=== PATIENT | female | born 1985 | race Caucasian/White ===

== ENCOUNTER 2016-11-24 19:53 | Emergency (ER) | payer OTHER ==
[~2016-11-24] VITALS: Ht 167.6 cm; Wt 77.3 kg
[~2016-11-24 19:53] MED LIST: ASCO500T9 PO; Docusate Sodium PO; FERR-83 PO; Hydrocodone/Acetaminophen PO; Ibuprofen PO; PREN1TAB78 PO
[2016-11-24 19:55] VITALS: BP 122/86; PULSE 90; RESP 20; O2SAT 100
--- NOTE | 2016-11-24 20:11 | ED.REPORT ---
HPI-General Illness Date of Service Nov 24, 2016 ED Provider: Shady Garcia MD A four month post- 31 year old female with a history of ovarian cysts is referred to the ED from Urgent Care due to lower abdominal cramping onset this morning. The pain "radiates like a contraction" but mostly stays in the lower abdomen. This is accompanied by lightheadedness and nausea, though the pt denies vomiting. She was seen by her law secretary earlier today, who performed a pelvic exam. This exam was normal. The pt experienced menstrual bleeding throughout 10/2016, but has not bled today despite having similar pain to her menstrual cramps. The last time the pt experienced this pain, she was hospitalized and diagnosed with an ovarian cyst. The pt is taking hormonal control pills. Nursing Notes Stated Complaint: CRAMPS/ABDOMINAL PAIN Chief Complaint: Female Abdominal Pain Nursing Notes Reviewed: Yes Allergies: Coded Allergies: No Known Allergies (Unverified Allergy, Unknown, 11/24/16) Scheduled ([Hydrocodone/Acetaminophen]) 1 TAB TABLET 1 TAB PO Q4-6H ([Docusate Sodium]) 100 MG CAPSULE 100 MG PO DAILY Ascorbic Acid (Ascorbic Acid) 500 Mg Tablet 500 MG PO DAILY Ferrous Sulfate (Ferrous Sulfate) 325 Mg Tablet 325 MG PO DAILY Vits W-Ca,Fe,FA(<1Mg) ( Formula) 1 Each Tablet 1 EACH PO DAILY Scheduled PRN ([Ibuprofen]) 800 MG TABLET 800 MG PO Q8 PRN PRN For Pain Hydrocodone-Acetaminophen 5-325 mg (Hydrocodone-Acetaminophen 5-325 mg) 1 Each Tablet 1 TABLET PO Q4H PRN PRN For Pain General Time Seen by MD: 20:11 Chief Complaint Abdominal pain Hx Obtained From: Patient Arrived By: Walk-in Sudden in Onset?: No Onset Occurred: 9 - 12 hours ago Recent Healthcare: No recent hospitalization, Recent doctor visit Similar Sx Previous: Yes Past Medical History Past Medical History Ovarian cysts Past Surgical History Cyst removal form L ovary Family History Reviewed, not relevant Smoking History Never Smoker Social History Alcohol Use: Denies alcohol use Drug Use: Denies drug use Other Social History: , Lives with children Ambulatory Status Independent Review of Systems Full Review of Systems Respiratory: Denies: Non-productive cough, Shortness of breath Cardiovascular: Denies: Chest pain GI: Reports: Abdominal pain, Nausea, Denies: Vomiting Musculoskeletal: Denies: Back pain, Neck pain Skin: Denies Rash Neurologic: Reports: Lightheaded Complete sys rev & neg: except as marked. Physical Exam Constitutional: Well-developed, well-nourished. Not diaphoretic. Head: Normocephalic and atraumatic. Mouth/Throat: Oropharynx is clear and moist. No oropharyngeal exudate. Eyes: EOM are normal. Pupils are equal, round, and reactive to light. Neck: Supple, no tracheal deviation. Cardiovascular: Normal rate, regular rhythm. Equal and intact distal pulses throughout. Pulmonary/Chest: Effort normal and breath sounds normal. No respiratory distress. Abdominal: Soft. No distension. There is no focal tenderness to palpation, rebound, or guarding. Bowel sounds present. Musculoskeletal: Range of motion grossly intact, moving all extremities. No edema or tenderness appreciated. Neurological: AOx3. Grossly nonfocal exam. Strength and sensation intact and equal to bilateral upper and lower extremities. Skin: Warm and dry, no rashes or pallor appreciated. Psychiatric: Appropriate mood and affect. Behavior appears normal. Vital Signs Vital Signs Date Time Temp Pulse Resp B/P Pulse Ox O2 Delivery O2 Flow Rate FiO2 11/24/16 19:55 36.6 90 20 122/86 100 Room Air Initial VS: Reviewed Interpretation & Diagnostics Interpretation & Diagnostics: US: No acute abnormalities. Lab Results Interpretation Result Diagram: 11/24/16203411/24/162034 Test 11/24/16 20:20 11/24/16 20:35 Urine Color Yellow (YELLOW) Urine Appearance Clear (CLEAR,HAZY) Urine pH 7.5 (5.0-8.0) Urine Specific [place] 1.010 (1.003-1.035) Urine Protein Negativemg/dL (NEG,TRACE) Urine Glucose (UA) Negativemg/dL (NEGATIVE) Urine Ketones Negativemg/dL (NEGATIVE) Urine Occult Blood Negative (NEGATIVE) Urine Nitrite Negative (NEGATIVE) Urine Bilirubin Negative (NEGATIVE) Urine Urobilinogen Normalmg/dL (NORMAL) Urine Leukocyte Esterase Negative (NEGATIVE) Urine RBC 0-2/hpf (0-2) Urine WBC 0-5/hpf (0-5) Urine Epithelial Cells Few/hpf (NONE-MOD) Urine Crystals None seen (NONE SEEN) Urine Bacteria None/hpf (NONE-FEW) Urine Hyaline Casts None/lpf (NONE) Urine Granular Casts None seen (NONE SEEN) Urine Waxy Casts None seen (NONE SEEN) Urine Red Blood Cell Casts None seen (NONE SEEN) Urine White Blood Cell Casts None seen (NONE SEEN) Urine Mucus None seen (None Seen) Urine Trichomonas None seen (NONE SEEN) Urine Yeast None (NONE SEEN) Urinalysis Comment None Urine Culture Reflexed Not indicated White Blood Count 8.5th/mm3 (3.8-10.1) Red Blood Count 4.92mil/mm3 (3.90-5.20) Hemoglobin 14.5g/dL (12.0-15.6) Hematocrit 42.3% (35.0-46.0) Mean Corpuscular Volume 86.0fL (81-100) Mean Corpuscular Hemoglobin 29.5pg (27.0-35.0) Mean Corpuscular Hemoglobin Concent 34.3% (32.0-37.0) Red Cell Distribution Width 12.5% (12.3-15.4) Platelet Count 159bil/L (150-400) Neutrophils (%) (Auto) 49.5% (40-74) Lymphocytes (%) (Auto) 40.7% (14-46) Monocytes (%) (Auto) 7.0% (4-12) Eosinophils (%) (Auto) 2.5% (0-5) Basophils (%) (Auto) 0.2% (0-3) Sodium Level 138mEq/L (134-144) Potassium Level 3.9mEq/L (3.5-5.2) Chloride Level 101mEq/L (97-108) Carbon Dioxide Level 23mmol/L (18-29) Blood Urea Nitrogen 24mg/dL (6-20) Creatinine 0.70mg/dL (0.57-1.00) Estimat Glomerular Filtration Rate 142mL/min (>59) Glucose Level 100mg/dL (60-99) Lactic Acid Level 0.8mmol/L (0.4-2.0) Calcium Level 9.6mg/dL (8.5-10.1) Magnesium Level 1.8mg/dL (1.6-2.6) Total Bilirubin 0.2mg/dL (0.0-1.2) Aspartate Amino Transf (AST/SGOT) 19U/L (0-50) Alanine Aminotransferase (ALT/SGPT) 25U/L (0-32) Alkaline Phosphatase 38U/L (25-150) Total Protein 7.6g/dL (6.4-8.4) Albumin 4.4g/dL (3.4-5.0) Lipase 42U/L (13-60) Re-Eval/Medical Decision Med Decision/Clinical Course 31-year-old female presenting to the ED for evaluation of abdominal pain. Her law secretary did a pelvic exam earlier today and patient would like to defer at this time, which seems reasonable. Ultrasound of the patient's abdomen does not demonstrate any acute cause for her pain at this time. She describes the pain is clearly similar to her previous pelvic pain and pain with her menstrual cycle , no focal right lower quadrant tenderness or periumbilical tenderness appendicitis seems less likely at this time, however cannot be definitively ruled out. This is discussed with the patient. Given reassuring ultrasound here in the emergency department, reasonable to discharge home with careful return precautions, PCP follow-up on Sunday. Patient agreeable to the plan as stated, no further questions. Source of Hx: Old records Time of Eval: 23:05 Patient Status: Condition improved Re-Evaluation/Progress Note: Pt rechecked, who is resting comfortably. The diagnosis and plan for discharge are discussed. The pt understands and agrees with the plan. All questions are addressed at this time. Counseled Regarding: Diagnosis, Lab results, Need for follow-up, When/why to return to ED Discharge & Departure Primary Impression: Abdominal pain Abdominal location: lower abdomen, unspecified Qualified Code: R10.30 - Lower abdominal pain, unspecified Disposition: Home Discharge Condition All VS Reviewed: Yes Condition: Stable Patient Instructions: Acute Abdominal Pain (ED), Pelvic Pain (ED) Additional Instructions: Please follow up on Sunday as discussed. Return to the ED if you develop any worsening pain, vomiting, vaginal bleeding, or if there's anything else of concern to you. Referrals: Neno Alatorre MD (PCP) [facility] Attestation Portions of this note were transcribed by Cynthia Camejo. I, Dr. Garcia personally performed the history, physical exam and medical decision-making; I reviewed and confirmed the accuracy of the information in the transcribed note. Signed by: Esau Dominguez, 11/24/2016 and 2323. copies to: Neno Alatorre MD, William B MD Nov 24, 2016 20:11 CYNTHIA CAMEJO Nov 24, 2016 21:35
[2016-11-24] MEDS ORDERED: Ondansetron 2 mg/mL 2 mL Inj ONE (20:24)
[2016-11-24] MEDS ORDERED: 0.9% Sodium Chloride 1,000 ML IV ONE (20:25)
[2016-11-24] MEDS: HYDROmorphone 0.5 mg/0.5 mL iSecure Syringe IVPUSH PRN ×2 (20:41→22:35)
[2016-11-24 20:45] LABS: BASOPHILS % (AUTO) 0.2 % (0-3); EOSINOPHILS % (AUTO) 2.5 % (0-5); Mean Corpuscular Hemoglobin 29.5 pg (27.0-35.0); NEUTROPHILS % (AUTO) 49.5 % (40-74); Platelet Count 159 bil/L (150-400)
[2016-11-24 20:51] LABS: APPEARANCE,URINE CLEAR (CLEAR,HAZY); COLOR,URINE YELLOW (YELLOW)
[2016-11-24 20:52] LABS: OCCULT BLOOD,URINE NEGATIVE (NEGATIVE); PH,URINE 7.5 (5.0-8.0); UROBILINOGEN,URINE NORMAL (NORMAL)
[2016-11-24 21:06] LABS: Magnesium 1.8 mg/dL (1.6-2.6)
[2016-11-24] MEDS ORDERED: HYDR-4003 PO (23:11)
--- NOTE | 2016-11-25 09:47 | DRSVH ---
PROCEDURE: US PELVIC SONOGRAM WITH TRANSVAG AND DOPPLER, LIMITED INDICATIONS: abdominal pain; eval for torsion, cyst, other abnl, site not identified. TECHNIQUE: Real-time scanning was performed of the pelvic organs, with image documentation. Additional endovagi nal scanning was necessary due to incomplete visualization of the adnexal and endometrial structures by transabdominal scanning. COMPARISON: None. FINDINGS: Transabdominal scanning: Limited scanning through the kidneys shows no hydronephrosis. No pathologi c free abdominal or pelvic fluid. Endovaginal scanning: Uterus: Uterus is normal in size at 6.6 x 4.1 x 4.9 cm. The endometrium measures 12 mm in combined thickness. Ovaries: Right ovary is not enlarged. It measures 37 x 20 x 17 mm. Is considered normal in appearance . No evidence for torsion of it is seen left ovary is not identified. IMPRESSION: This is a nondiagnostic study to evaluate for torsion. The right ovary is normal. The lef t ovary is not seen. Sided abdominal pain is not specified. Uterus is normal in appearance. Dictated by: Jayden Steele M.D. on 11/25/2016 at 9:43 Approved by: Jayden Steele M.D. on 11/25/2016 at 9:45
== END 2016-11-24 23:23 | disposition home or self-care (01) ==
LOC: SED 19:53
DX: R10.30 Lower abdominal pain, unspecified (principal); R42 Dizziness and giddiness; R11.0 Nausea
CPT/HCPCS: 36415; 76830; 76856; 80053; 81000; 81025; 83605; 83690; 83735; 85025; 93976; 96361; 96374; 96375; 96376; 99285; J1170; J2405; J7030

== ENCOUNTER 2016-11-25 03:09 | Emergency (ER) | payer OTHER ==
[~2016-11-25] VITALS: Ht 167.6 cm; Wt 77.3 kg
[~2016-11-25 03:09] MED LIST changes: +HYDR-4003 PO
[2016-11-25 03:14] VITALS: BP 139/73; PULSE 80; RESP 22; O2SAT 100
--- NOTE | 2016-11-25 04:18 | ED.REPORT ---
HPI-Abd Pain F Under 40 Date of Service Nov 25, 2016 ED Provider: Giovanni Olivo MD Pt is a 31 year old female presenting to the ED complaining of persistent lower abdominal pain. Associated symptoms include nausea and vomiting. She was seen in the ER earlier tonight and was unable to fill her prescription for Vicodin after discharge. Denies other symptoms at this time. Nursing Notes Stated Complaint: STOMACH PAIN Chief Complaint: Female Abdominal Pain Nursing Notes Reviewed: Yes Allergies: Coded Allergies: No Known Allergies (Unverified Allergy, Unknown, 11/24/16) Scheduled ([Hydrocodone/Acetaminophen]) 1 TAB TABLET 1 TAB PO Q4-6H ([Docusate Sodium]) 100 MG CAPSULE 100 MG PO DAILY Ascorbic Acid (Ascorbic Acid) 500 Mg Tablet 500 MG PO DAILY Ferrous Sulfate (Ferrous Sulfate) 325 Mg Tablet 325 MG PO DAILY Vits W-Ca,Fe,FA(<1Mg) ( Formula) 1 Each Tablet 1 EACH PO DAILY Scheduled PRN ([Ibuprofen]) 800 MG TABLET 800 MG PO Q8 PRN PRN For Pain Hydrocodone-Acetaminophen 5-325 mg (Hydrocodone-Acetaminophen 5-325 mg) 1 Each Tablet 1 TABLET PO Q4H PRN PRN For Pain General Time Seen by MD: 04:00 Chief Complaint Abdominal pain Hx Obtained From: Patient Arrived By: Walk-in Onset Occurred: Yesterday Symptom Duration: Since onset Progression since Onset: Constant Location: : Abdomen lower Quality: Painful Severity: Current: Moderate Severity: Maximum: Moderate Recent Healthcare: No recent hospitalization, Recent doctor visit Similar Sx Previous: No Past Medical History Past Medical History Ovarian cysts Past Surgical History Cyst removal form L ovary Family History Reviewed, not relevant Smoking History Never Smoker Social History Alcohol Use: Denies alcohol use Drug Use: Denies drug use Other Social History: , Lives with children Ambulatory Status Independent Review of Systems Constitutional: Denies: Weakness - generalized Respiratory: Denies: Wheezing GI: Reports: Abdominal pain, Nausea, Vomiting Complete sys rev & neg: except as marked. Physical Exam Initial Vital Signs Vital Signs (First) Date Time Temp Pulse Resp B/P Pulse Ox O2 Delivery O2 Flow Rate FiO2 11/25/16 03:14 36.5 80 22 139/73 100 Room Air Initial VS: Reviewed, Vital signs normal Head / Eyes: Atraumatic, Normocephalic, PERRL ENT: Mucous membranes moist, Conjunctiva normal, No scleral icterus Extremities: Vascular intact, Neuro intact, No swelling, No tenderness Skin: Warm, Dry, No cyanosis Neurologic: Alert, Oriented, Nonfocal Psychiatric: Mood/affect normal, Behavior normal, Normal thought content General/Constitutional: Awake, Alert, Well appearing, Well developed Distress / Hydration: Positive: Distress mild Respiratory / Chest: Breath sounds NL, Breath sounds = bilat, No respiratory distress, No rales, No rhonchi, No wheezing Cardiovascular: Heart rate NL, Regular rhythm, Heart sounds NL, Peripheral circulation NL Abdomen: Soft Tenderness/Guarding/Rebound: Positive: Tender diffuse Interpretation & Diagnostics Lab Results Interpretation Test 11/25/16 03:49 Hold Purple Top Tube Received (Received) Hold Blue Top Tube Received (Received) Hold [place] Top Tube Received (Received) Hold Feng Top Tube Received (Received) Re-Eval/Medical Decision Med Decision/Clinical Course 31-year-old female who was seen earlier by Dr. Garcia. She had been given a prescription for 10 Vicodin but all the pharmacies were closed and she was unable to fill this. After reviewing the record, here being here and performing a physical examination, it was decided to exchange her prescription for prepack of equal volume. Re-Evaluation/Progress : Time of Eval: 04:54 Patient Status: Condition improved Re-Evaluation/Progress Note: Discussed plan for discharge. Pt understands and agrees. Counseled Regarding: Diagnosis, Lab results, Need for follow-up, When/why to return to ED Discharge & Departure Primary Impression: Abdominal pain Abdominal location: right upper quadrant Qualified Code: R10.11 - Right upper quadrant pain Disposition: Home Discharge Condition All VS Reviewed: Yes Condition: Improved Patient Instructions: Acute Abdominal Pain (ED) Additional Instructions: Please see your previous discharge instructions. I have substituted a prepack of #10 Vicodin for the prescription that he previously received and could not fill. Referrals: [facility] (PCP) [facility] Esau Attestation Portions of this note were transcribed by Radha Carrion. I, Dr. Olivo personally performed the history, physical exam and medical decision-making; I reviewed and confirmed the accuracy of the information in the transcribed note. Signed by: Esau Pierre, 11/25/2016 and 0454. copies to: [facility] Giovanni Olivo MD Nov 25, 2016 04:18 RADHA CARRION Nov 25, 2016 04:21
[2016-11-25] MEDS ORDERED: HYDROmorphone 0.5 mg/0.5 mL iSecure Syringe IVPUSH PRN (04:20)
[2016-11-25] MEDS ORDERED: _HYDROcodone/APAP 5-325 mg Tablet PO PRN (04:20)
[2016-11-25] MEDS ORDERED: Ondansetron 2 mg/mL 2 mL Inj IVPUSH PRN (04:20)
== END 2016-11-25 05:17 | disposition home or self-care (01) ==
LOC: SED 03:09
DX: R10.11 Right upper quadrant pain (principal); R11.2 Nausea with vomiting, unspecified
CPT/HCPCS: 96374; 96375; 99284; J1170; J2405

== ENCOUNTER 2016-11-27 20:32 | Emergency (ER) | payer OTHER | END 2016-11-27 20:50 | disposition left against medical advice (07) | LOC: SED 20:32 | DX: Z53.20 Procedure and treatment not carried out because of patient's decision for unspecified reasons (principal) ==

== ENCOUNTER 2016-11-29 09:55 | Emergency (ER) | payer OTHER ==
[~2016-11-29] VITALS: Ht 167.6 cm; Wt 77.0 kg
[2016-11-29 10:03] VITALS: BP 127/84; PULSE 70; RESP 18; O2SAT 100
--- NOTE | 2016-11-29 10:07 | ED.REPORT ---
HPI-Abd Pain F Under 40 Date of Service Nov 29, 2016 ED Provider: Reymundo Thomas MD 31 y/o female with a hx of endometriosis and ovarian cyst presents to the ED complaining of worsening abdominal pain, onset 5 days ago that feels like constant contractions. The pt states "my uterus hurts really bad and it just wont stop hurting". The pt has been experiencing this pain for the last 7 years but it has been worsening significantly recently. She has been visiting the ED everyday for the last 5 days with the same complaint and her imaging results have been normal. She also complains of intermittent vaginal bleeding for the last two months and has been bleeding through a maxi pad every 1 hour. Associated sx include nausea, vomiting and chills. She has experienced similar sx before when she had a cyst in her ovary removed. However, current pain is worse. She has an appointment with her AREA MANAGER today at 15:00 but presented to the ED as she could not tolerate the pain. Nursing Notes Stated Complaint: VOMITING Chief Complaint: Female Abdominal Pain Nursing Notes Reviewed: Yes Allergies: Coded Allergies: No Known Allergies (Unverified Allergy, Unknown, 11/29/16) Scheduled ([Hydrocodone/Acetaminophen]) 1 TAB TABLET 1 TAB PO Q4-6H ([Docusate Sodium]) 100 MG CAPSULE 100 MG PO DAILY Ascorbic Acid (Ascorbic Acid) 500 Mg Tablet 500 MG PO DAILY Ferrous Sulfate (Ferrous Sulfate) 325 Mg Tablet 325 MG PO DAILY Vits W-Ca,Fe,FA(<1Mg) ( Formula) 1 Each Tablet 1 EACH PO DAILY Scheduled PRN ([Ibuprofen]) 800 MG TABLET 800 MG PO Q8 PRN PRN For Pain Hydrocodone-Acetaminophen 5-325 mg (Hydrocodone-Acetaminophen 5-325 mg) 1 Each Tablet 1 TABLET PO Q4H PRN PRN For Pain Ibuprofen (Ibuprofen) 800 Mg Tablet 800 MG PO TID PRN PRN For Pain General Time Seen by MD: 10:02 Chief Complaint Abdominal pain Hx Obtained From: Patient Arrived By: Walk-in Sudden in Onset?: No Onset Occurred: 5 days ago Symptom Duration: Since onset Progression since Onset: Gradually worsening Location: : Abdomen lower Quality: Cramping Radiation: : Does not radiate Severity: Current: Moderate Severity: Maximum: Severe Recent Healthcare: Recent doctor visit Similar Sx Previous: Yes Past Medical History Past Medical History Ovarian cysts endometriosis Past Surgical History Cyst removal form L ovary Family History Reviewed, not relevant Smoking History Never Smoker Social History Alcohol Use: Denies alcohol use Drug Use: Denies drug use Other Social History: , Lives with children Ambulatory Status Independent Review of Systems Constitutional: Reports: Chills GI: Reports: Abdominal pain, Nausea, Vomiting Female: Reports: Vaginal bleeding - abnl Complete sys rev & neg: except as marked. Physical Exam Initial Vital Signs Vital Signs (First) Date Time Temp Pulse Resp B/P Pulse Ox O2 Delivery O2 Flow Rate FiO2 11/29/16 10:03 70 18 127/84 100 Room Air Initial VS: Reviewed, Vital signs normal Head / Eyes: Atraumatic, Normocephalic Neck: Supple, Non-tender, Full range of motion Extremities: Vascular intact, Neuro intact, No swelling, No tenderness Skin: Warm, Dry, No cyanosis Neurologic: Alert, Oriented, Nonfocal General/Constitutional: Awake, Alert, Cooperative Distress / Hydration: Positive: Distress severe Respiratory / Chest: Atraumatic, Breath sounds NL, Breath sounds = bilat, No respiratory distress, No rales, No rhonchi, No wheezing Cardiovascular: Heart rate NL, Regular rhythm, Heart sounds NL, No gallop, No murmurs, No rubs No lower extremity edema Abdomen: Atraumatic, No guarding, No rebound Mild lower abdomen tenderness. Back: Atraumatic, Inspection NL, Full range of motion, Non-tender, No CVA tenderness Female Genitourinary: Mold Forms Builder present, Atraumatic, External genitalia NL, No discharge, No cervical motion tend, Os closed Minimal bleeding Interpretation & Diagnostics Lab Results Interpretation Result Diagram: 11/29/16 1019 11/29/16 1019 Test 11/29/16 10:19 11/29/16 13:05 White Blood Count 6.5th/mm3 (3.8-10.1) Red Blood Count 4.60mil/mm3 (3.90-5.20) Hemoglobin 13.4g/dL (12.0-15.6) Hematocrit 39.1% (35.0-46.0) Mean Corpuscular Volume 85.0fL (81-100) Mean Corpuscular Hemoglobin 29.1pg (27.0-35.0) Mean Corpuscular Hemoglobin Concent 34.3% (32.0-37.0) Red Cell Distribution Width 12.3% (12.3-15.4) Platelet Count 155bil/L (150-400) Neutrophils (%) (Auto) 63.7% (40-74) Lymphocytes (%) (Auto) 28.9% (14-46) Monocytes (%) (Auto) 5.7% (4-12) Eosinophils (%) (Auto) 1.2% (0-5) Basophils (%) (Auto) 0.3% (0-3) Sodium Level 138mEq/L (134-144) Potassium Level 4.1mEq/L (3.5-5.2) Chloride Level 103mEq/L (97-108) Carbon Dioxide Level 20mmol/L (18-29) Blood Urea Nitrogen 19mg/dL (6-20) Creatinine 0.56mg/dL (0.57-1.00) Estimat Glomerular Filtration Rate 183mL/min (>59) Glucose Level 111mg/dL (60-99) Calcium Level 9.2mg/dL (8.5-10.1) Magnesium Level 1.7mg/dL (1.6-2.6) Total Bilirubin 0.2mg/dL (0.0-1.2) Aspartate Amino Transf (AST/SGOT) 17U/L (0-50) Alanine Aminotransferase (ALT/SGPT) 34U/L (0-32) Alkaline Phosphatase 29U/L (25-150) Total Protein 6.5g/dL (6.4-8.4) Albumin 4.1g/dL (3.4-5.0) Lipase 29U/L (13-60) Hold Feng Top Tube Received (Received) Urine Color Straw (YELLOW) Urine Appearance Hazy (CLEAR,HAZY) Urine pH 6.0 (5.0-8.0) Urine Specific [place] 1.010 (1.003-1.035) Urine Protein Negativemg/dL (NEG,TRACE) Urine Glucose (UA) Negativemg/dL (NEGATIVE) Urine Ketones 15mg/dL (NEGATIVE) Urine Occult Blood Large (NEGATIVE) Urine Nitrite Negative (NEGATIVE) Urine Bilirubin Negative (NEGATIVE) Urine Urobilinogen Normalmg/dL (NORMAL) Urine Leukocyte Esterase Negative (NEGATIVE) Urine RBC >50/hpf (0-2) Urine WBC 0-5/hpf (0-5) Urine Epithelial Cells Occasional/hpf (NONE-MOD) Urine Crystals None seen (NONE SEEN) Urine Bacteria None/hpf (NONE-FEW) Urine Hyaline Casts None/lpf (NONE) Urine Granular Casts None seen (NONE SEEN) Urine Waxy Casts None seen (NONE SEEN) Urine Red Blood Cell Casts None seen (NONE SEEN) Urine White Blood Cell Casts None seen (NONE SEEN) Urine Mucus None seen (None Seen) Urine Trichomonas None seen (NONE SEEN) Urine Yeast None (NONE SEEN) Urinalysis Comment None Urine Culture Reflexed Not indicated Hold Urine Received (Received) Re-Eval/Medical Decision Med Decision/Clinical Course Med Decision/Clinical Course: 31-year-old female started chronic pelvic pain presenting complaining of pelvic pain. She has been seen in the ER every day for the past 4 or 5 days with this. She has had negative ultrasound and negative CT. CT was negative yesterday. She reports she feels like this when she gets menstrual cramps for the past 7 years. No active bleeding on exam. Vital signs stable. Labs are unremarkable. Urine is negative for infection. Ultrasound shows no right ovarian torsion unable to visualize left ovary which was also not visualized on recent visit. She has a follow-up with her AREA MANAGER in several hours. Patient's pain was improved significantly and she felt stable for discharge with planned follow-up with her AREA MANAGER this afternoon. Return precautions given. Source of Hx: Old records Re-Evaluation/Progress : Time of Eval: 13:17 Re-Evaluation/Progress Note: Rechecked pt. Performed a pelvic exam. Discussed lab results, imaging results, diagnosis and plan to discharge. Pt understands and agrees with the plan. F/U instructions and RTER warning given. All questions addressed. Counseled Regarding: Diagnosis, Lab results, Need for follow-up, When/why to return to ED Discharge & Departure Primary Impression: Pelvic pain Disposition: Home Discharge Condition All VS Reviewed: Yes Condition: Stable Patient Instructions: Pelvic Pain in Women (ED) Additional Instructions: Thank you for entrusting us with your care today. Your lab and imaging results were reassuring. Keep your appointment with your AREA MANAGER today for further evaluation. Return to the Emergency Department in case of worsening bleeding, fevers, nausea /vomiting, lightheadedness/dizziness, other new or worsening symptoms. Referrals: [facility] Scribe Attestation Portions of this note were transcribed by Dot Portillo. I, , personally performed the history, physical exam and medical decision- making;I reviewed and confirmed the accuracy of the information in the transcribed note. Signed by Esau Mitchell. 11/29/16 13:50 copies to: [facility] Reymundo Thomas MD Nov 29, 2016 10:07 Dot Portillo Nov 29, 2016 10:18
[2016-11-29] MEDS ORDERED: 0.9% Sodium Chloride 1,000 ML IV ONE (10:12)
[2016-11-29] MEDS ORDERED: Ondansetron 2 mg/mL 2 mL Inj IVPUSH PRN (10:15)
[2016-11-29 10:28] LABS: BASOPHILS % (AUTO) 0.3 % (0-3); EOSINOPHILS % (AUTO) 1.2 % (0-5); MONOCYTES % (AUTO) 5.7 % (4-12); Mean Corpuscular Hemoglobin 29.1 pg (27.0-35.0); NEUTROPHILS % (AUTO) 63.7 % (40-74); Platelet Count 155 bil/L (150-400)
[2016-11-29 10:54] LABS: Magnesium 1.7 mg/dL (1.6-2.6)
[2016-11-29] MEDS ORDERED: IBUP800T28 PO (13:35)
[2016-11-29 14:00] VITALS: BP 116/80; PULSE 79; RESP 16; O2SAT 99
[2016-11-29 14:29] LABS: APPEARANCE,URINE HAZY (CLEAR,HAZY); COLOR,URINE STRAW (YELLOW)
[2016-11-29 14:30] LABS: OCCULT BLOOD,URINE LARGE (NEGATIVE); UROBILINOGEN,URINE NORMAL (NORMAL)
--- NOTE | 2016-11-30 11:06 | DRSVH ---
PROCEDURE: US PELVIC SONOGRAM WITH TRANSVAG AND DOPPLER, LIMITED INDICATIONS: pelvic pain TECHNIQUE: Real-time scanning was performed of the pelvic organs, with image documentation. Additional endovagi nal scanning was necessary due to incomplete visualization of the adnexal and endometrial structures by transabdominal scanning. COMPARISON: [facility], US, US PELVIC+TRANSVAG+DOP LTD, 11/24/2016, 21:58. FINDINGS: (orthogonal measurements) Uterus size: 8.87 cm, 3.49 cm, 5.96 cm Endometrium thickness: 6.40 mm Right ovary size: 2.24 cm, 3.67 cm, 1.65 cm, 1.55 cm, 3.59 cm, 1.83 cm Left ovary size: Not visualized. Transabdominal scanning: Limited scanning through the kidneys shows no hydronephrosis. No pathologi c free abdominal or pelvic fluid. Endovaginal scanning: Uterus: Uterus is normal in size and appearance. Endometrium is within normal physiologic limits. Ovaries: Left ovary is not well-seen. Normal right ovary. Doppler assessment demonstrates normal ar terial and venous flow within the right ovary. IMPRESSION: 1. Left ovary not well visualized and cannot be evaluated. 2. Normal appearance of the right ovary. Dr. Kalen More given results by the spinner box at 1140 hrs. 11/29/2016. Dictated by: Calin PINZON Interpreted: Inderjit Jara MD on 11/30/2016 at 10:15 Approved by: Inderjit Jara M.D. on 11/30/2016 at 11:04
== END 2016-11-29 14:01 | disposition home or self-care (01) ==
LOC: SED 09:55 → EDBD 09:55 → SED 14:01
DX: R10.2 Pelvic and perineal pain (principal); G89.29 Other chronic pain; N93.9 Abnormal uterine and vaginal bleeding, unspecified; R11.2 Nausea with vomiting, unspecified; R68.83 Chills (without fever); Z87.42 Personal history of other diseases of the female genital tract
CPT/HCPCS: 36415; 76830; 76856; 80053; 81000; 81025; 83690; 83735; 85025; 93976; 96361; 96374; 96375; 96376; 99285; J1885; J2270; J2405; J7030